=== PATIENT | female | born 2000 | race American Indian/Alaskan Native ===

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

== ENCOUNTER 2020-07-07 08:56 | Outpatient (CLI) | payer OTHER ==
[2020-07-07] MEDS ORDERED: LACTATED RINGERS 500 ML IV ONE (10:00)
[2020-07-07 10:32] VITALS: BP 112/61
[2020-07-07] MEDS ORDERED: MAGNESIUM SULFATE 4 GM/100 ML BAG IV ONE (11:39)
[2020-07-07] MEDS ORDERED: LACTATED RINGERS 1,000 ML IV SCH (11:45)
[2020-07-07] MEDS ORDERED: MAGNESIUM SULFATE 40GM/1000ML 40 GM/1,000 ML BAG IV SCH (12:00)
== END 2020-07-07 11:43 | disposition home or self-care (01) ==
LOC: TRG 08:56 → APU 08:57 → TRG 11:43
PROVIDERS: ATTEND Obstetrics & Gynecology
DX: O36.8120 Decreased fetal movements, second trimester, not applicable or unspecified (principal); Z3A.28 28 weeks gestation of pregnancy
CPT/HCPCS: 59025

== ENCOUNTER 2020-08-26 10:55 | Outpatient (CLI) | payer OTHER ==
[2020-08-26 11:21] VITALS: BP 114/58
[2020-08-26] MEDS ORDERED: LACTATED RINGERS 1,000 ML IV ONE (11:24)
[2020-08-26] MEDS ORDERED: ONDANSETRON 4 MG/2 ML INJ IV PRN (12:30)
[2020-08-26 13:01] LABS: Bilirubin,Urine NEG (Negative); Blood,Urine NEG (Negative); Color,Urine Yellow (Yellow); Mucus,Urine 1+ /HPF; Urobilinogen,Urine < 2.0 mg/dL (<2.0)
== END 2020-08-26 13:30 | disposition home or self-care (01) ==
LOC: TRG 10:55 → APU 10:56 → TRG 13:30
PROVIDERS: ATTEND Obstetrics & Gynecology
DX: O21.2 Late vomiting of pregnancy (principal); O47.03 False labor before 37 completed weeks of gestation, third trimester; Z3A.36 36 weeks gestation of pregnancy; Z87.891 Personal history of nicotine dependence
CPT/HCPCS: 59025; 81001; 96361; 96365; J2405; J7120; 96360